=== PATIENT | female | born 1955 | race Caucasian/White ===

== ENCOUNTER → 2018-08-03 | Outpatient (CLI) | payer OTHER | LOC: FIMAGING 09:44 | PROVIDERS: ATTEND Internal Medicine | DX: K42.9 Umbilical hernia without obstruction or gangrene (principal); K59.00 Constipation, unspecified; N83.292 Other ovarian cyst, left side; M41.85 Other forms of scoliosis, thoracolumbar region; M46.97 Unspecified inflammatory spondylopathy, lumbosacral region ==

== ENCOUNTER 2018-08-27 14:37 | Day surgery (SDC) | payer OTHER ==
[~2018-08-27 14:37] MED LIST: VANCOMYCIN HCL/NORMAL SALINE 250 ML IV ONE
[2018-08-27] MEDS ORDERED: LR 1,000 ML IV ONE (14:45)
[2018-08-27] MEDS ORDERED: HEPARIN 1000 UNIT/1 ML MDV ONE (14:53)
[2018-08-27] MEDS ORDERED: BUPIVACAINE 0.5% 30 ML SDV ONE (14:53)
[2018-08-27] MEDS ORDERED: ceFAZolin 1 GM/5 ML SYR ONE (14:54)
[2018-08-27] MEDS ORDERED: fentaNYL 100 MCG/2 ML INJ ONE ×2 (15:58→16:01)
[2018-08-27] MEDS ORDERED: PROPOFOL 200 MG/20 ML VIAL ONE (15:58)
[2018-08-27] MEDS ORDERED: ROCURONIUM 50 MG/5 ML VIAL ONE (16:01)
--- NOTE | 2018-08-27 16:04 | PDANEPAE ---
ANE Past Medical History - Cardiovascular History Hx Hypertension: No Hx Arrhythmias: No Hx Chest Pain: No Cardiovascular History Comment: mild heart murmur, mitral valve prolapse. 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 scoliosis - GI History Hx Gastrointestinal Disorders: No - Other Health History Other Health History: none - Chronic Pain History Chronic Pain: Yes (scitica) - Surgical History Prior Surgeries: none in last 5 yrs ANE Review of Systems Review of Systems: - Exercise capacity METS (RN): 5 METS ANE Patient History - Allergies Allergies/Adverse Reactions: Penicillins Allergy (Verified 08/26/18 17:56) Anaphylaxis streptomycin Allergy (Verified 08/26/18 17:56) Anaphylaxis Sulfa (Sulfonamide Antibiotics) Allergy (Verified 08/26/18 17:56) Anaphylaxis - Home Medications Home Medications: Albuterol Inhaler Hfa 04/19/14 [Last Taken 08/30/16] Acyclovir 08/26/18 [Last Taken 08/26/18] - NPO status NPO Since - Liquids (Date): 08/27/18 NPO Since - Liquids (Time): 13:00 NPO Since - Solids (Date): 08/27/18 NPO Since - Solids (Time): 08:00 - Smoking Hx Smoking Status: Never smoked - Family Anes Hx Family Hx Anesthesia Complications: none ANE Labs/Vital Signs - Vital Signs Vital Signs: reviewed preoperatively; see RN documention for details Blood Pressure: 134/83 Heart Rate: 62 Respiratory Rate: 16 O2 Sat (%): 95 Height: 149.86 cm Weight: 48.081 kg ANE Physical Exam - Airway Neck exam: FROM Mallampati Score: Class 1 - Pulmonary Pulmonary: clear to auscultation - Cardiovascular Cardiovascular: regular rate and rhythym - ASA Status ASA Status: I
[2018-08-27] MEDS ORDERED: LIDOCAINE 2% 100 MG/5 ML SYR ONE (16:05)
[2018-08-27] MEDS ORDERED: DEXAMETHASONE 4 MG/ML VIAL ONE (16:35)
[2018-08-27] MEDS ORDERED: SUGAMMADEX SODIUM 200 MG/2 ML VIAL IVP ONE (16:45)
[2018-08-27] MEDS ORDERED: KETOROLAC 30 MG/1 ML SDV ONE (16:45)
[2018-08-27] MEDS ORDERED: fentaNYL 100 MCG/2 ML INJ IVP PRN (16:46)
[2018-08-27] MEDS ORDERED: HYDROmorphONE/DILAUDID 2 MG/ML INJ IVP PRN (16:46)
[2018-08-27] MEDS ORDERED: NALOXONE HCL 0.4 MG/ML INJ IVP PRN (16:46)
[2018-08-27] MEDS ORDERED: DEXAMETHASONE 4 MG/ML VIAL IVP PRN (16:46)
[2018-08-27] MEDS ORDERED: ONDANSETRON 4 MG/2 ML VIAL IVP PRN (16:46)
[2018-08-27] MEDS ORDERED: ALBUTEROL 3 ML DEYVIAL IH PRN (16:46)
[2018-08-27] MEDS ORDERED: NS 500 ML IV PRN (16:46)
[2018-08-27] MEDS ORDERED: oxyCODONE IR 5 MG TAB PO PRN (16:46)
[2018-08-27] MEDS ORDERED: ACETAMINOPHEN 500 MG TAB PO PRN (16:46)
--- NOTE | 2018-08-27 16:56 | PDHPUP ---
History & Physical Update H&P update statement: This history and physical update is based on an assessment of the patient which was completed after admission or registration (within 24 hours), but prior to the surgery/procedure. H&P update: H&P reviewed & patient examined, no change in patient's condition since H&P completed
--- NOTE | 2018-08-27 16:59 | POSTOPPROG ---
Post Op Note Date of Operation: 08/27/18 Surgeon: Gustavo Alanis Mission Commander: Yokasta Roman Anesthesiologist: Julia Gamino/Valentino Vines Anesthesia: GET(General Endotracheal) Pre-op Diagnosis: umbilical hernia, LLQ pain, known L ovarian cyst Post-op Diagnosis: same Procedure: open umb hernia repair, ex-laparoscopy, aspiration of L ovarian cyst Findings: subcentimeter umbilical defect, Ovarian cyst c slightly cloudy yellow fluid Inf/Abcess present in the surg proc area at time of surgery?: No EBL: Minimal Complications: none Specimen(s): L ovarian cyst aspirate for cytology
--- NOTE | 2018-08-27 17:01 | POSTANESTH ---
Post Anesthetic Evaluation Cardiovascular Status: Normal, Stable Respiratory Status: Normal, Stable Level of Consciousness/Mental Status: Can Participate in Eval, Mildly Sleepy, Arousable Pain Control: Adequate, Prn Tx Ordered Nausea/Vomiting Control: Adequate, Prn Tx Ordered Complications Possibly Related to Anesthesia: None Noted
[2018-08-27 18:23] VITALS: BP 139/79
--- NOTE | 2018-08-28 14:14 | GOP ---
DATE OF OPERATION: 08/27/2018 SURGEON: Gustavo Alanis MD [employer] SUPERVISOR: PETE Brower ANESTHESIOLOGIST: Dr. Vines PREOPERATIVE DIAGNOSIS: Umbilical hernia and left lower quadrant pain. POSTOPERATIVE DIAGNOSIS: Umbilical hernia and left lower quadrant pain with left ovarian cyst and mo derate diverticulosis. PROCEDURE PERFORMED: 1. Open repair of umbilical hernia. 2. Diagnostic laparoscopy with aspiration and drainage of a left ovarian cyst. FINDINGS: Patient was found to have a small, less than 1 cm umbilical hernia defect. She had a 3.5 cm left ovarian cyst. The fluid inside was non-bloody, but somewhat milky in color, and sent to Path ology. There are no other hernias. No other evidence of trouble in the abdomen, particularly left l ower quadrant, except for diverticulosis and apparent constipation. DESCRIPTION OF PROCEDURE: Patient was taken to the operating room where she received satisfactory ge neral endotracheal anesthesia by Dr. Vines. She was placed in supine position and prepped and draped in usual sterile fashion. Curvilinear incision was made in the infraumbilical area. Dissection was extended down through subcu taneous tissue. The umbilical hernia sac was dissected free and sac was opened. A Veress needle was inserted. Pneumoperitoneum was established. A 5 mm trocar was introduced. Laparoscope was introdu [place]. Good visualization was obtained with the above-noted findings. The bowel was run and examined with no evidence of Meckel's or other abnormalities. The appendix was totally normal and the gallbladder appeared to be normal. There were no significant adhesions in th e abdomen. The ovarian cyst on the left was investigated. Its contents were aspirated, approximatel y 4 cc of fluid, which was milky in color and sent to Pathology. Hemostasis was obtained with cautery. Trocars removed. Pneumoperitoneum was released. The hernia d efect was then closed using 0 Surgilon [id number] sutures and 3-0 Vicryl for the subcu. Skin in cisions were closed with 4-0 Monocryl subcuticular sutures. The previous trocar sites were also clos ed with 4-0 Monocryl subcuticular sutures, and all wounds were infiltrated with 0.5% Marcaine. She t olerated the procedure well. Blood loss negligible. No complications. /[id number]/MODL
== END 2018-08-27 18:29 | disposition home or self-care (01) ==
LOC: FSGY 14:37
PROVIDERS: ATTEND Surgery
DX: K42.9 Umbilical hernia without obstruction or gangrene (principal); N83.202 Unspecified ovarian cyst, left side; K57.30 Diverticulosis of large intestine without perforation or abscess without bleeding; Z88.0 Allergy status to penicillin
CPT/HCPCS: J1100; J1885; J2001; J2704; J3010; J3370